=== PATIENT | male | born 1970 | race Caucasian/White ===

== ENCOUNTER → 2017-10-09 | Outpatient (CLI) | payer BC ==
[~2017-10-09] MED LIST: BUPR200T2 PO; DIGO0.122 PO; LAMO200T35 PO; OXCA300T PO; PRLSR20 PO; TPRSR25 PO; WARF-246 PO
--- NOTE | 2017-10-10 06:27 | PAP/PSG TECHNICIAN REPORT ---
[facility] Forensic Structural Engineer Polysomnogram Report Study name: None Report date: 10/10/2017 Study date: 10/09/2017 Referring Physician: Marylou Gonzalez PA-C, PA-C Name: BRIANNA TEE Interpreting Physician: Frank Lopez D.O. Date of : 1970 Forensic Structural Engineer: Maty Tavera [facility]. Sex: Male Age: 47 StudyType: PSG PAP Weight: 297 lbs Height: 47 years, Height 6' 0" Neck Circum: 48 cm BMI: 40.28 Medications: Omeprazole 20 mg, Digoxin 125 mcg, Lamictal 200 mg, Metformin 500 mg, Metoprolol Tartrate 25 mg, Simvastatin 20 mg, Trileptal 300 mg, Warfarin Sodium 5 mg, Wellbutrin SR 200 mg Patient History 47 yr. old male here for an updated titration sleep study. Patient has been on CPAP for over 10 years. He is currently on +14 CWP. Parameters Monitored NPSG: E1-M2, E2-M1, Fp1-M2, Fp2-M1, F3-M2, F4-M2, F4-M1, C3-M2, C4-M2, C4-M1, O1-M2, O2-M2, O2-M1, T3-M2, T4-M1, P3-M2, P4-M1, CHIN1, CHIN2, HR, EKG, Legs, PFLOW, SNOR, FLOW, CFLOW, Tidal Volume, THOR, ABDO, SpO2, PLTH, CPRESS, ETCO2 Wave, ETCO2, pH Sleep Architecture Sleep Stages Time at Lights Off 10:07:42 PM STAGES Time (min.) TST (%) Time at Lights On 5:42:12 AM Wake 14.5 -- Total Recording Time (TRT) 454.50 min. N1 57.5 13 Total Sleep Period (TSP) 451.5 min. N2 316.5 72 Total Sleep Time (TST) 440.0min. N3 35.0 8 Awake Time 14.5 min. REM 31.0 7 Wake after Sleep Onset 11.5 min. Sleep Efficiency (SE) 97 % Sleep Onset Latency ([place]) 3.0 min. Number of Stage 1 Shifts None Awakenings 19 Stage Changes 137 Number of REM periods 5 REM 31.0 7 REM Latency 171.5 min. NREM 409.0 93 Body Position Analysis Supine Right Left Side Prone Vertical Total Sleep Time (min.) 294.9 45.8 108.8 154.59 0.0 1.7 Total Sleep Time (%) 65% 10% 25% 35 0% N/A% Total Sleep Time REM (min.) 31.0 0.0 0.0 None 0.0 0.0 Total Sleep Time NREM (min.) 254.4 45.8 108.8 None 0.0 0.0 Intermittent Wake (min.) 9.5 1.0 2.3 None 0.0 1.7 Total Sleep Period (%) 65% None None None None None Arousals Myoclonus (PLM) * Events Count Index Events Count Index Spontaneous 5 1 Events Awake (PLMW) 26 107.6 Respiratory 23 3.1 Events Asleep w/ Arousal (PLMA) 120 16.4 PLM 119 16 Events Asleep w/o Arousal (PLMS) 186 25.4 Snoring 27 4 Total Asleep 306 41.7 Total 174 24 Total 332 44 Respiratory Analysis * CA OA MA CH H RERA Total Count 0 2 0 0 27 6 29 Index 0.0 0.3 0.0 0 3.7 1 4.8 Mean Duration 0.0 16.5 0.0 0.00 29.1 24.9 27.7 Longest Duration 0.0 16.8 0.0 0.00 0.0 30.7 57.9 Respiratory Event Summary Total Supine ~Supine Right Left Prone REM NREM Apneas Count 2 0 2 0 2 N/A 0 2 Index 0.3 0 1 0.0 1.1 N/A 0 0 Hypopneas (4% Desat) Count 27 14 13 0 13 N/A 1 26 Index 3.7 2.9 5 0.0 7.2 N/A 1.9 3.8 Apneas & All Hypopneas Count 29 14 15 0 15 N/A 1 28 Index 4.0 3 6 0 8 N/A 1.9 4.1 Respiratory Events (Mash Tub Cooker Operator+All Hyp+RERA) Count 29 17 18 0 18 N/A 1 28 Index 4.8 4 7 0.0 9.9 N/A 1.9 5.0 Respiratory Related Arousal Count 23 17 11 0 11 N/A 0 23 Index 3.1 3 4 0 6 N/A 0 3 Snoring Analysis Supine Right Left Prone REM NREM Total Snore duration 45.5 min Snores count 841 348 764 N/A 20 1,933 1,953 Snore mean duration 1.4 Sec Snores index 177 456 421 N/A 38.7 283.6 266.3 TST with snoring (%) 10.3% Desaturation Event Summary: Minimum %SpO2 Event Count Mean/Min/Max Duration(sec.) Desaturation Index % Time In Bed > 90 41 29.8 / 7.0 / 60.0 5.4 99.9 86 - 90 0 N/A 0.0 0.1 81 - 85 0 N/A 0.0 0.0 76 - 80 0 N/A 0.0 0.0 71 - 75 0 N/A 0.0 0.0 66 - 70 0 N/A 0.0 0.0 61 - 65 0 N/A 0.0 0.0 56 - 60 0 N/A 0.0 0.0 51 - 55 0 N/A 0.0 0.0 < 50 0 N/A 0.0 0.0 Total REM NREM Awake <50% 0.0 min. 0.0 min. 0.0 min. 0.0 min. 51 - 60% 0.0 min. 0.0 min. 0.0 min. 0.0 min. 61 - 70% 0.0 min. 0.0 min. 0.0 min. 0.0 min. 71 - 80% 0.0 min. 0.0 min. 0.0 min. 0.0 min. 81 - 90% 0.5 min. 0.0 min. 0.2 min. 0.3 min. 91 - 100% 453.4 min. 31.0 min. 408.4 min. 13.9 min. Average 94 94 94 95 Minimum SpO2 90 91 90 90 Desaturation Event Index 5.4 7.7 5.3 4.1 # Desat. Events below 89% N/A N/A N/A N/A Time(%) with Saturation below 89% 0.0 0.0 0.0 0.0 Time(min.) with Saturation below 89% 0.0 0.0 0.0 0.0 Time (mins) REM (mins) NREM (mins) % of TST SpO2 Below 90% 2 N/A N2 0.0 SpO2 Below 88% 0 0 0 0 Heart Rate Analysis Min (bpm) Max (bpm) Average (bpm) Awake 65 127 85 NREM 57 127 82 REM 64 100 84 Overall 57 127 82 Supplemental O2 Values Minimum O2 level: None Value Start Time End Time Forensic Structural Engineer Comments Mr. Tee slept in the right, left, and supine positions. Cardiac arrhythmia( Afib and PVS'c) and PLMs noted. No bruxism noted. CPAP was initiated at +6 CMH2O(patient could not tolerate a lower pressure) and up-titrated to a level of +12 CMH2O , which nearly eliminated all respiratory events and snoring. Patient used his own ResMed nasal mask during titration. Mr. Tee did not wake to use the restroom during the night. Mr. Tee stated, that was a normal night. The final report will be interpreted and signed by a sleep physician. The completed physician report will then be placed in the patient medical record. Therapy Event: Therapy (cm H20) 6 7 8 9 10 11 12 13 14 Total Time at Pressure (min.) 12.6 19.3 72.5 19.1 34.4 112.7 82.5 55.3 46.0 TST at Pressure (min.) 9.6 19.3 71.0 18.6 33.9 110.7 77.5 53.8 45.5 # Periods 1 1 1 1 1 1 1 1 1 Sleep Onset (min.) 3.0 0.0 0.0 0.0 0.0 0.0 0.0 0.0 0.0 REM Onset (min.) N/A N/A N/A N/A N/A 16.6 60.3 N/A N/A Sleep Efficiency % 76 100 97 97 98 98 93 97 98 Wakefulness (%) 23.8 0.0 2.1 2.6 1.5 1.8 6.1 2.7 1.1 Wakefulness (min.) 3.0 0.0 1.5 0.5 0.5 2.0 5.0 1.5 0.5 NREM 1 (%) 23.8 2.6 8.3 7.8 2.9 8.9 37.6 7.2 1.1 NREM 1 (min.) 3.0 0.5 6.0 1.5 1.0 10.0 31.0 4.0 0.5 NREM 2 (%) 52.5 97.4 67.6 89.6 95.6 57.9 47.9 90.1 81.5 NREM 2 (min.) 6.6 18.8 49.0 17.1 32.9 65.2 39.5 49.8 37.5 NREM 3 (%) 0.0 0.0 22.1 0.0 0.0 10.2 0.0 0.0 16.3 NREM 3 (min.) 0.0 0.0 16.0 0.0 0.0 11.5 0.0 0.0 7.5 REM (%) 0.0 0.0 0.0 0.0 0.0 21.3 8.5 0.0 0.0 REM (min.) 0.0 0.0 0.0 0.0 0.0 24.0 7.0 0.0 0.0 # Arousals 9 20 37 17 11 21 44 13 2 Arousal Index 56.1 62.2 31.3 54.7 19.5 11.4 34.0 14.5 2.6 # Snore 22 63 458 117 317 323 41 151 461 Snore Index 137.1 195.8 387.2 376.6 561.3 175.0 31.7 168.4 608.3 AHI 0.0 21.8 4.2 9.7 7.1 3.3 3.1 0.0 0.0 AHI Supine N/A N/A 2.9 15.2 0.0 3.3 3.1 0.0 N/A AHI Non-Supine 0.0 21.8 4.8 0.0 30.2 N/A N/A 0.0 0.0 NREM AHI 0.0 21.8 4.2 9.7 7.1 4.1 2.6 0.0 0.0 REM AHI N/A N/A N/A N/A N/A 0.0 8.6 N/A N/A RDI 0.0 28.0 6.8 12.9 7.1 3.3 3.1 0.0 0.0 # Obstructive 0 2 0 0 0 0 0 0 0 # Central Ap 0 0 0 0 0 0 0 0 0 # Mixed 0 0 0 0 0 0 0 0 0 # Hypopneas 0 5 5 3 4 6 4 0 0 RERAS 0 2 3 1 0 0 0 0 0 Total Respiratory Events 0 9 8 4 4 6 4 0 0 Time Below SpO2 89.00% (min.) 0.0 0.0 0.0 0.0 0.0 0.0 0.0 0.0 0.0 Mean NREM SpO2 (%) 97 96 95 95 94 94 94 93 94 Mean REM SpO2 (%) N/A N/A N/A N/A N/A 94 94 N/A N/A Mean Sleep SpO2 (%) 97 96 95 95 94 94 94 93 94 Min NREM SpO2 (%) 95 93 92 92 92 90 91 91 92 Min REM SpO2 (%) N/A N/A N/A N/A N/A 91 91 N/A N/A Position Supine (min.) 0.0 0.0 20.9 11.8 25.9 110.7 77.5 38.5 0.0 Position Non-supine (min.) 9.6 19.3 50.1 6.8 8.0 0.0 0.0 15.3 45.5 LM Index Sleep 49.9 93.2 55.0 70.8 37.2 28.2 56.5 35.7 4.0 LM Index NREM 49.9 93.2 55.0 70.8 37.2 25.6 56.1 35.7 4.0 LM Index REM N/A N/A N/A N/A N/A 37.5 60.0 N/A N/A Mean Heart Rate (bpm) 84 84 83 83 83 84 82 80 78 Min Heart Rate (bpm) 69 66 62 66 57 62 65 63 63
--- NOTE | 2017-10-16 20:44 | Sleep Study ---
Sleep Study Report Date of Service: 10/09/2017 Sleep Study Report CLINICAL DATA: The patient is a 47-year-old male who has a history of obstructive sleep apnea. He has been on CPAP for over 10 years. His current pressure is 14 centimeters. His studies were done elsewhere. Comorbidities include atrial fibrillation. He is referred for a CPAP retitration. His BMI is elevated at 40.28. SLEEP ARCHITECTURE: The sleep period time was 451.5 minutes. The total sleep time was 440 minutes. The sleep efficiency was high at 97 percent. The sleep latency was normal at 3 minutes. Wake after sleep onset was 11.5 minutes. The REM latency was prolonged to 171.5 minutes. Sleep consisted of stage N1 13 percent, stage N2 72 percent, stage N3 8 percent, stage REM 7 percent. AROUSAL DATA: The patient had 174 arousals including 5 spontaneous arousals, 23 respiratory arousals, 119 PLM arousals, and 27 snoring arousals. The arousal index was 24. PLM DATA: The patient had 306 periodic limb movements of sleep for a PLM index of 41.7. There were 120 arousals associated with limb movements for a PLM arousal index of 16.4. EKG: The underlying cardiac rhythm was atrial fibrillation. The cardiac rates 57- 127 beats per minute. It is likely the higher rates are technical in nature. It appeared his true highest heart rate was under 100. RESPIRATORY DATA: The patient was treated with nasal CPAP. He had a total of 29 respiratory events including 2 obstructive apneas and 27 hypopneas. In addition there were 6 RERAs. The longest apnea was 16.8 seconds. The mean duration of the hypopneas was 29.1 seconds. Hypopneas were scored according to the 4 percent desaturation rule. The apnea-hypopnea index was 4.0. At the final pressure of 14 centimeters the apnea-hypopnea index was 0. He did spend 46 minutes at the final pressure. OXIMETRY DATA: The average saturation for the night was 94 percent. The minimum saturation was 90 percent. There were 0 minutes with saturations less than 89 percent. SECURITIES ANALYST COMMENTS: The patient slept in the right, left, and supine positions. Cardiac arrhythmia and PLMS noted. No bruxism noted. CPAP was initiated at 6 centimeters. This was up titrated to a level of 14 centimeters which nearly eliminated all respiratory events and snoring. The patient used his own ResMed med nasal mask during titration. He did not awaken to use the restroom during the night. IMPRESSIONS: 1. Obstructive sleep apnea-resolved with nasal CPAP at 14 centimeters 2. Periodic limb movement disorder 3. Cardiac arrhythmia-atrial fibrillation COMMENTS: The patient did well in terms of his sleep efficiency. Sleep architecture was abnormal with decreased REM sleep. There was increased stage N2. He did have frequent limb movements with a modest number of arousals. Clinical correlation is required to determine if he has true restless legs. He did well at both 13 centimeters and 14 centimeters. His machine currently is set at 14 in it likely can just be continued as it is as the sleep apnea is well resolved. RECOMMENDATIONS: 1. Suggest maintaining that patient's nasal CPAP at 14 centimeters 2. Clinical correlation is required to determine if he requires treatment for the limb movement disorder. 3. Would at least check a serum ferritin level to evaluate if he has underlying iron deficiency that might be contributing to the limb movements. Copies To 1: Frank Lopez DO; Marylou Gonzalez PA-C; Jes Quiroga D.O.
== END | disposition home or self-care (01) ==
LOC: C.NEUR 20:00
PROVIDERS: ATTEND Physician Assistant
DX: G47.33 Obstructive sleep apnea (adult) (pediatric) (principal); I48.91 Unspecified atrial fibrillation; G47.61 Periodic limb movement disorder

== ENCOUNTER → 2018-03-28 | Outpatient (CLI) | payer BC ==
[~2018-03-28] VITALS: Ht 152.4 cm; Wt 131.8 kg
[2018-03-28 16:38] VITALS: BP 112/72; PULSE 87; Ht 152.4 cm; Wt 131.8 kg
== END | disposition home or self-care (01) ==
LOC: C.NEUR 15:15
PROVIDERS: ATTEND Physician Assistant
DX: G47.33 Obstructive sleep apnea (adult) (pediatric) (principal)